=== PATIENT | male | born 1950 | race Caucasian/White ===

== ENCOUNTER → 2017-10-26 | Outpatient (CLI) | payer OTHER ==
[~2017-10-26] MED LIST: ASPI-1471 PO; ATOR10TA65 PO; B12/1TAB PO; CHOL10005 PO; FLU45SYR25 IM ONLY; FLU60SYR30 IM ONLY; FOLI-68 PO; LEVO-3 PO; LEVO150T72 PO; LOR5 PO; PHEN100 PO; PHEN100C88 PO; PNEI IM; PNEU0.5D3 IM
[2017-10-26 09:23] LABS: PLATELET COUNT, AUTOMATED 245 K/uL (150-450)
[2017-10-26 10:45] LABS: LDL CHOLESTEROL 76 mg/dl
== END ==
LOC: LAB 09:10
PROVIDERS: ATTEND Nurse Practitioner Family
DX: Z12.5 Encounter for screening for malignant neoplasm of prostate (principal); E78.5 Hyperlipidemia, unspecified; E05.90 Thyrotoxicosis, unspecified without thyrotoxic crisis or storm; D75.89 Other specified diseases of blood and blood-forming organs; Z79.899 Other long term (current) drug therapy
CPT/HCPCS: 36415; 80185; 82040; 82247; 82310; 82374; 82435; 82465; 82565; 82947; 83718; 84075; 84132; 84153; 84155; 84295; 84443; 84450; 84460; 84478; 84520; 85025

== ENCOUNTER → 2017-12-10 | Outpatient (CLI) | payer OTHER | LOC: LAB 11:12 | PROVIDERS: ATTEND Nurse Practitioner | DX: L85.9 Epidermal thickening, unspecified (principal) | CPT/HCPCS: 88305 ==

== ENCOUNTER → 2018-04-29 | Outpatient (CLI) | payer OTHER ==
[2018-04-29 10:14] LABS: PLATELET COUNT, AUTOMATED 268 K/uL (150-450)
[2018-04-29 10:28] LABS: LDL CHOLESTEROL 70 mg/dl
== END ==
LOC: LAB 08:48
PROVIDERS: ATTEND Nurse Practitioner Family
DX: E03.9 Hypothyroidism, unspecified (principal); E78.5 Hyperlipidemia, unspecified; R86.9 Unspecified abnormal finding in specimens from male genital organs; Z79.899 Other long term (current) drug therapy
CPT/HCPCS: 36415; 80185; 82040; 82247; 82310; 82374; 82435; 82465; 82565; 82947; 83718; 84075; 84132; 84155; 84295; 84443; 84450; 84460; 84478; 84520; 85025

== ENCOUNTER → 2018-05-24 | Outpatient (CLI) | payer OTHER ==
--- NOTE | 2018-05-24 12:57 | RADIOLOGY IMAGING REPORT ---
FACILITY: [facility] [place] PATIENT NAME: Carlos George : 1950 MR: [id number] V: [id number] EXAM DATE: ORDERING PHYSICIAN: EDUARDA MALDONADO TECHNOLOGIST: Location: [facility] Patient: Carlos George : 1950 Visit/Account:[id number] Date of Sevice: 05/24/2018 Abdomen aorta ultrasound INDICATION: Ectatic aorta on prior CT COMPARISON: CT December 05, 2014 FINDINGS: The suprarenal aorta measures 2 x 3.1 cm. The superior infrarenal aorta measures 2.1 x 2.6 cm. The mid infrarenal aorta measures 2.8 x 3.6 cm. The inferior infrarenal aorta measures 3.4 x 4 cm. The right and left common iliac arteries are normal measuring 1.1 cm. 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 The dis tomasa aorta measured up to 3.3 [address] the prior CT. Report Dictated By: Eduardo Hernandez MD at 05/24/2018 12:49 PM Report E-Signed By: Eduardo Hernandez MD at 05/24/2018 12:53 PM WSN:[id number]
== END ==
LOC: US 01:33
PROVIDERS: ATTEND Nurse Practitioner Family
DX: I71.9 Aortic aneurysm of unspecified site, without rupture (principal)
CPT/HCPCS: 93979

== ENCOUNTER → 2018-10-28 | Outpatient (CLI) | payer OTHER ==
[2018-10-28 09:07] LABS: PLATELET COUNT, AUTOMATED 222 K/uL (150-450)
== END ==
LOC: LAB 08:29
PROVIDERS: ATTEND Nurse Practitioner Family
DX: R56.9 Unspecified convulsions (principal); E78.5 Hyperlipidemia, unspecified; E03.9 Hypothyroidism, unspecified; Z79.899 Other long term (current) drug therapy; Z12.5 Encounter for screening for malignant neoplasm of prostate
CPT/HCPCS: 36415; 80185; 82040; 82247; 82310; 82374; 82435; 82565; 82947; 84075; 84132; 84153; 84155; 84295; 84443; 84450; 84460; 84520; 85025